=== PATIENT | female | born 1990 | race Two or more races ===

== ENCOUNTER → 2024-06-13 | Outpatient (CLI) | payer BC, SELFPAY ==
[2024-06-13 11:09] LABS: Collection Type, Urine Clean Catch
[2024-06-13 11:34] LABS: Basophils % (Auto) 0 % (0-2.5); Eosinophils # (Auto) 0.1 Thou/mm3 (0.0-0.5); Eosinophils % (Auto) 1 % (0-10); Hematocrit 36.9 % (36.0-46.0); Hemoglobin 12.4 g/dL (12.0-16.0); Immature Granulocytes % (Auto) 0 % (0-0); Immature Granulocytes Auto 0.01 Thou/mm3 (0.00-0.00); Lymphocytes # (Auto) 1.9 Thou/mm3 (1.0-4.8); Lymphocytes % (Auto) 30 % (10-50); Mean Corpuscular HGB Conc 33.6 g/dl (31.0-37.0); Mean Corpuscular Hemoglobin 29.8 pg (25.0-35.0); Mean Corpuscular Volume 89 fL (80-100); Monocytes # (Auto) 0.3 Thou/mm3 (0.0-0.8); Monocytes % (Auto) 5 % (0-12); Neutrophils % (Auto) 63 % (37-80); Nucleated Red Blood Cell % 0 /100 WBC (0); Platelet Count 217 Thou/mm3 (140-440); RDW Standard Deviation 45.5 fL (36.4-46.3); Red Blood Count 4.16 Miln/mm3 (4.00-5.20); White Blood Count 6.4 Thou/mm3 (3.6-11.0)
[2024-06-13 11:44] LABS: Bilirubin,Urine Negative (Negative); Blood,Urine Trace (Negative); Clarity,Urine Clear (Clear/Hazy); Color,Urine Colorless (Lt Yel-Yel); Culture Indicated,Urine Not Indicated; Glucose, Urine Negative (Negative); Ketones,Urine Trace (Negative); Leukocyte Esterase,Urine Negative (Negative); Nitrite,Urine Negative (Negative); Protein,Urine Negative (Neg - Trace); RBC,Urine 1 /hpf (0-3); Specific Gravity,Urine 1.009 (1.001-1.035); Squamous Epithelial Cell,Urine 1 /hpf (0-5); Urobilinogen,Urine Negative mg/dL (0.0-1.0); WBC,Urine 1 /hpf (0-5)
[2024-06-13 11:45] LABS: Glucose Estimated Average 88 mg/dL (80-131); Hemoglobin A1C 4.7 % Hgb (4.8-6.0)
[2024-06-13 11:51] LABS: Vitamin D 25 Hydroxy Total 64.6 ng/mL (7.3-40.2)
[2024-06-13 12:06] LABS: Alanine Aminotransferase 23 U/L (10-49); Albumin, Serum 4.6 gm/dL (3.5-5.0); Albumin/Globulin Ratio 2.1 (1.2-2.2); Alkaline Phosphatase 43 U/L (46-116); Anion Gap 8 (7-16); Aspartate Amino Transferase 17 U/L (0-34); BUN/Creatinine Ratio 27 Ratio (12-20); Bilirubin,Total 0.5 mg/dL (0.3-1.2); Blood Urea Nitrogen 16 mg/dL (9-23); Calcium 9.6 mg/dL (8.3-10.6); Calcium (Corrected) 9.6 mg/dL (8.5-10.1); Carbon Dioxide 27.2 mMol/L (20.0-31.0); Cardiac Risk Estimate 2.6 RATIO (3.7-5.6); Chloride 107 mMol/L (98-107); Cholesterol 175 mg/dL (132-200); Creatinine (Component) 0.6 mg/dL (0.6-1.3); Globulin 2.2 gm/dL (2.3-3.5); Glucose 82 mg/dL (74-106); HDL Cholesterol 67 mg/dL (40-60); LDL Cholesterol,Calculated 95 mg/dL (0-130); Osmolality,Calculated 283 (275-295); Potassium 4.5 mMol/L (3.4-5.1); Sodium 142 mMol/L (136-145); Thyroid Stimulating Hormone 0.47 uIU/mL (0.55-4.78); Total Protein 6.8 gm/dL (5.7-8.2); Triglycerides 67 mg/dL (30-150); eGFR > 60 See Note
== END | disposition home or self-care (01) ==
LOC: COPL 10:16
PROVIDERS: PCP Family Medicine; Referring Provider Family Medicine; Visit Provider Family Medicine
DX: Z00.00 Encounter for general adult medical examination without abnormal findings (principal); E11.9 Type 2 diabetes mellitus without complications; Z13.0 Encounter for screening for diseases of the blood and blood-forming organs and certain disorders involving the immune mechanism; Z13.21 Encounter for screening for nutritional disorder; Z13.220 Encounter for screening for lipoid disorders; Z13.29 Encounter for screening for other suspected endocrine disorder
CPT/HCPCS: 36415; 80053; 80061; 81001; 82306; 83036; 84443; 85025

== ENCOUNTER → 2024-06-23 | Outpatient (CLI) | payer BC, SELFPAY ==
--- NOTE | 2024-06-23 14:52 | XR_ITS ---
Examination: Sinus series 4 views TECHNIQUE: Jr Phillips lateral submentovertex sinus series 4 views Exam date and time: June 23, 2024 1511 hours INDICATIONS: Sinus pressure and pain beginning one week ago FINDINGS: Mild opacity in the frontal ethmoid air cells maxillary antra as well as sphenoid air cells No fluid levels No retention cysts IMPRESSION: Mild chronic pansinusitis
== END | disposition home or self-care (01) ==
LOC: CDIM 14:43
PROVIDERS: PCP Family Medicine; Referring Provider Family Medicine; Visit Provider Family Medicine
DX: J32.4 Chronic pansinusitis (principal)
CPT/HCPCS: 70220

== ENCOUNTER 2025-01-01 14:28 | Emergency (ER) | payer BC, SELFPAY ==
--- NOTE | 2025-01-01 14:32 | EKG_ITS ---
[facility] (Formerly [facility])[3] Test Date: 2025-01-01 Pat Name: BAHMAN MIKE Department: Room: - Gender: Female Nicker: : 1990 Requested By: Beverly Rider Order Number: [id number] Reading MD: Beverly Rider Measurements Intervals [place] Rate: 101 P: 26 IN: 132 QRS: 70 QRSD: 99 T: 37 QT: 321 QTc: 416 Interpretive Statements SINUS TACHYCARDIA ABNORMAL RHYTHM ECG No previous ECG available for comparison /store/S0/[id number].pdf
[2025-01-01 14:36] VITALS: BP 115/68; PULSE 101; RESP 18; TEMP 37.4; O2SAT 100; BMI 31.6
--- NOTE | 2025-01-01 14:39 | XR_ITS ---
Examination: CT brain head without contrast. 2-D sagittal coronal reconstructions Date and time of exam: January 01, 2025, 1551 hours INDICATIONS: Severe headaches today CTDI: vol (mGy): 47.9 DLP: (mGycm): 855 Technique: Multiple CT axial sections of the brain have been obtained, 5 mm slice thickness. Contrast has not been administered. 2-D sagittal, coronal reconstructions have been obtained Low dose protocols were performed. One or more of the following dose reduction techniques were used; automated exposure control, adjustment of the mA and/or KV according to patient size, use of iterative reconstruction technique. Findings: No significant ventricular enlargement. Intra-axial or extra-axial hemorrhage density is not seen. No mass effect or midline shift Basal cisterns are not remarkable. Fourth ventricle is midline. Cranial vault intact. Impression: Negative for acute hemorrhage, mass effect or midline shift
--- NOTE | 2025-01-01 14:40 | XR_ITS ---
CLINICAL INDICATION: Chest Pain TECHNIQUE: XR chest 2V, 01/01/2025 at 2:44 p.m. COMPARISON: None. FINDINGS: The cardiomediastinal silhouette is within normal limits. No airspace opacities suggestive of pneumonia. Punctate dense nodule in the right upper lobe could represent a calcified granuloma. No mass detected. No pleural effusion or pneumothorax. Mild convex right spinal curvature may be positional in etiology or due to scoliosis. Otherwise, no acute osseous abnormalities detected. IMPRESSION: No radiographic evidence for acute cardiopulmonary abnormality. - This report was generated utilizing speech recognition software. -
--- NOTE | 2025-01-01 14:43 | PD.EDRME ---
Rapid Medical Screening Exam [facility] Arrival date/time: 01/01/25 14:28 34-year-old female with a history of type 2 diabetes presents to the emergency room with a chief complaint of a 10 out of 10 headache, shortness of breath, chest pain x 2 days I have greeted and performed a focused initial assessment of this patient. A comprehensive ED assessment and evaluation of the patient, analysis of all test results, and completion of the medical decision making process will be conducted by additional ED providers. Chief Complaint: Chest Pain Time Seen by Provider: 01/01/25 14:31 Vital signs: Vital Signs Temperature 99.4 F 01/01/25 14:36 Pulse Rate 101 H 01/01/25 14:36 Respiratory Rate 18 01/01/25 14:36 Blood Pressure 115/68 01/01/25 14:36 Pulse Oximetry (%) 100 01/01/25 14:36 Oxygen Delivery Method Room Air 01/01/25 14:36 Vital signs reviewed by provider: Yes Exam: Sternal chest pain that radiates to the left arm 10 out of 10 headache to the left side of her head. GCS of 15 alert and oriented x 3 pupils are PERRLA Clinical Impression: Migraine/tension headache/subarachnoid hemorrhage
[2025-01-01] MEDS: ACETAMINOPHEN 500 MG TABLET 1000 MG PO (15:34)
[2025-01-01] MEDS: METOCLOPRAMIDE 5 MG TABLET 10 MG PO (15:35)
[2025-01-01 15:40] LABS: Basophils # (Auto) 0.0 Thou/mm3 (0.0-0.2); Basophils % (Auto) 0 % (0-2.5); Eosinophils # (Auto) 0.0 Thou/mm3 (0.0-0.5); Eosinophils % (Auto) 0 % (0-10); Hematocrit 39.2 % (36.0-46.0); Hemoglobin 13.7 g/dL (12.0-16.0); Immature Granulocytes Auto 0.03 Thou/mm3 (0.00-0.00); Lymphocytes # (Auto) 1.2 Thou/mm3 (1.0-4.8); Lymphocytes % (Auto) 10 % (10-50); Mean Corpuscular HGB Conc 34.9 g/dl (31.0-37.0); Mean Corpuscular Hemoglobin 30.9 pg (25.0-35.0); Mean Corpuscular Volume 88 fL (80-100); Monocytes # (Auto) 0.7 Thou/mm3 (0.0-0.8); Monocytes % (Auto) 6 % (0-12); Neutrophils # (Auto) 10.3 Thou/mm3 (1.8-7.7); Neutrophils % (Auto) 84 % (37-80); Nucleated Red Blood Cell # 0.00 Thou/mm3 (0.00-0.00); Nucleated Red Blood Cell % 0 /100 WBC (0); Platelet Count 198 Thou/mm3 (140-440); RDW Standard Deviation 38.4 fL (36.4-46.3); Red Blood Count 4.44 Miln/mm3 (4.00-5.20); White Blood Count 12.3 Thou/mm3 (3.6-11.0)
[2025-01-01 15:56] LABS: INR 1.0 (0.9-1.3); Partial Thromboplastin Time 25.8 Seconds (22.0-36.0); Prothrombin Time 10.2 Seconds (9.0-12.2)
[2025-01-01 15:59] LABS: Alanine Aminotransferase 17 U/L (10-49); Albumin, Serum 4.7 gm/dL (3.5-5.0); Albumin/Globulin Ratio 2.0 (1.2-2.2); Alkaline Phosphatase 62 U/L (46-116); Anion Gap 9 (7-16); Aspartate Amino Transferase 15 U/L (0-34); BUN/Creatinine Ratio 15 Ratio (12-20); Bilirubin,Total 0.5 mg/dL (0.3-1.2); Blood Urea Nitrogen 9 mg/dL (9-23); Calcium 9.7 mg/dL (8.3-10.6); Calcium (Corrected) 9.7 mg/dL (8.5-10.1); Carbon Dioxide 28.2 mMol/L (20.0-31.0); Chloride 103 mMol/L (98-107); Creatinine (Component) 0.6 mg/dL (0.6-1.3); Estimated Creatinine Clearance 118.2 mL/min (>60); Globulin 2.3 gm/dL (2.3-3.5); Glucose 105 mg/dL (74-106); Magnesium 1.7 mg/dL (1.6-2.6); Osmolality,Calculated 278 (275-295); Potassium 4.2 mMol/L (3.4-5.1); Sodium 140 mMol/L (136-145); Total Protein 7.0 gm/dL (5.7-8.2); Troponin I < 0.002 ng/mL (0.0-0.045); eGFR > 60 See Note
[2025-01-01 16:08] LABS: B-Type Natriuretic Peptide 32 pg/mL (0-100)
--- NOTE | 2025-01-01 16:59 | EDNOTE_ITS ---
<Statement entered by Beverly Watkins MD - 01/03/25 16:17> As co-signing physician, I was present and available for consult prn. I concur with the plan and care as documented by the midlevel provider. ED General RME/HPI General Chief complaint: Chest Pain Stated complaint: CHEST/BACK PAIN, SOB Time Seen by Provider: 01/01/25 14:31 Arrival date/time: 01/01/25 14:28 CC: Headache, mid back pain shortness of breath due to back pain HPI onset this morning. The patient did no heavy lifting fall blunt trauma yesterday but states she may have slept wrong on it this morning. The patient takes sumatriptan for migraines which did not relieve the pain. Patient denies light sensitivity noise sensitivity nausea or vomiting. No other complaints last menstrual cycle was the end of last month the patient has an implant against . Patient denies fever cough shortness of breath difficulty breathing. RME / HPI RME / HPI narrative: 01/01/25 14:28 34-year-old female with a history of type 2 diabetes presents to the emergency room with a chief complaint of a 10 out of 10 headache, shortness of breath, chest pain x 2 days I have greeted and performed a focused initial assessment of this patient. A com prehensive ED assessment and evaluation of the patient, analysis of all test results, and completion of the medical decision making process will be conducted by additional ED providers. Exam: Sternal chest pain that radiates to the left arm 10 out of 10 headache to the left side of her head. GCS of 15 alert and oriented x 3 pupils are PERRLA Impression: Migraine/tension headache/subarachnoid hemorrhage Related Data Home Medications ?Medication ?Instructions ?Recorded ?Confirmed Vit #76/Iron,Carb/FA (Pnv 1 ea PO 1XD #0 tabs 08/31/16 10/30/21 29-1 Tablet) insulin aspart U-100 100 unit/mL 5 unit subcut 3XD 03/2210/30/21 (3 mL) subcutaneous pen (Novolog FlexPen U-100 Insulin aspart) insulin degludec 100 unit/mL (3 46 unit subcut 1XD 03/2210/30/21 mL) subcutaneous pen (Tresiba FlexTouch U-100 insulin) Previous Rx's ?Medication ?Instructions ?Recorded meloxicam 7.5 mg tablet 7.5 mg PO QDAY #10 tabs 05/23 Allergies Allergy/AdvReac Type Severity Reaction Status Date / Time sulfamethoxazole Allergy Severe WEAKNESS Verified 01/01/25 14:31 trimethoprim Allergy Severe WEAKNESS Verified 01/01/25 14:31 Review of Systems Review of Systems Narrative Review of Systems: GEN: No fever, no chills, no weight loss EYES: No discharge, no visual changes, no pain HEENT: No ear pain, no congestion, no sore throat PULM: No shortness of breath, no cough, no congestion CV: No chest pain, no dyspnea on exertion, no palpitations GI: No nausea, no vomiting, no diarrhea, no pain, no constipation : No frequency, no urgency, no dysuria MUSC/SKEL: No joint pain, + back pain SKIN: No rash PSYCH: No hallucinations, no depression HEME/LYMPH: No easy bleeding or bruising tendencies NEURO: No weakness, + headache Past Medical History Past Medical History CARDIAC: Negative Congestive Heart Failure RESPIRATORY: Negative Chronic Obstructive Pulmonary Disease (COPD) GENITOURINARY: Negative Renal Disease ENDOCRINE: Positive Diabetes Mellitus Type 2; Negative Diabetes Mellitus Type 1 Social History SMOKING STATUS: Never smoker ED Exam Narrative Physical exam: [General: Obese not in any acute distress Head normocephalic HEENT: Within acceptable limits Neck is supple nontender Chest equal chest rise nontender to palpation Respiratory: Clear to auscultation no wheezes crackles or rubs CV: Rate rhythm is regular no murmurs rubs or clicks Abdomen is distended secondary to body habitus soft nontender no masses positive bowel sounds all 4 quadrants Back: No CVA tenderness no spinous process tenderness from cervical spine thoracic and lumbar spine there is no pain reproduction with palpation in the mid thoracic region bilaterally. Skin: Intact no petechiae rash induration ulceration or crepitus Extremities: Moving all extremity against resistance cap refill less than 2 seconds neurosensory intact Neuro: Awake alert oriented x3 Glascow coma 15 no focal deficits] Course Course Course Narrative: Upon reassessment at 1700, the patient has complete relief of the headache with a migraine cocktail. Occasional be discharged home to follow-up with primary care doctor. Quality Measures none Orders Category Date Time Status EKG (ED ONLY) *Do not use* NOW Care 01/01/25 14:[address] head/brain wo con Stat Exams 01/01/25 14:39 Completed EKG (ED Only) Stat Exams 01/01/25 14:32 Draft XR chest 2V Stat Exams 01/01/25 14:40 Completed B-Type Natriuretic Peptide Stat Lab 01/01/25 15:25 Completed CBC Stat Lab 01/01/25 15:25 Completed Comprehensive Metabolic Panel Stat Lab 01/01/25 15:25 Completed Magnesium Stat Lab 01/01/25 15:25 Completed Partial Thromboplastin Time Stat Lab 01/01/25 15:25 Completed Prothrombin Time with INR Stat Lab 01/01/25 15:25 Completed Troponin I Stat Lab 01/01/25 15:25 Completed Acetaminophen Tab [Tylenol ES Tab] Med 01/01/25 14:39 Discontinued 1,000 mg PO X1 ONE DiphenhydrAMINE [Benadryl] Med 01/01/25 14:39 Discontinued 25 mg PO X1 ONE Metoclopramide [Reglan] Med 01/01/25 14:39 Discontinued 10 mg PO X1 ONE Vital Signs Vital signs: Vital Signs Temperature 99.4 F 01/01/25 14:36 Pulse Rate 101 H 01/01/25 14:36 Respiratory Rate 18 01/01/25 14:36 Blood Pressure 115/68 01/01/25 14:36 Pulse Oximetry (%) 100 01/01/25 14:36 Oxygen Delivery Method Room Air 01/01/25 14:36 Discharge Plan Plan Patient Disposition: HOME (Self Care) Patient condition on transfer: Stable Prescriptions/Referrals Prescriptions/Med Rec: New meloxicam 7.5 mg tablet 7.5 mg PO QDAY Qty: 10 0RF No Action Vit #76/Iron,Carb/FA (Pnv 29-1 Tablet) 1 EACH tablet 1 ea PO 1XD Qty: 0 insulin aspart U-100 [Novolog FlexPen U-100 Insulin] 100 unit/mL (3 mL) Insulin Pen 5 unit SUBCUT 3XD Rx Instructions: before meals Tresiba FlexTouch U-100 100 unit/mL (3 mL) Insulin Pen 46 unit SUBCUT 1XD Referrals: Abdi (PCP)Maikol MD [Primary Care Provider, Family Practice] - In 1 week Problem List Clinical Impression: Mid back pain, Headache Patient/Caregiver Discharge Instructions Other Activity Instructions:: Take the medications as needed follow-up with your primary care doctor there is worsening of symptoms return the emergency room immediately for further evaluation. Education Materials: Self-Care for Headaches, Self-Care for Low Back Pain Print Language: Czech Stand Alone Forms: Jennifer Award Info., Patient Portal Info Letter, Work/School Release FELIX/HARISH Supervising Physician NARENDRA Supervising Physician: Daniel BIANCHI Clinical Information Provided by: patient Medical Records reviewed [facility] Meds/Rx considered, not ordered None Labs/Rad/Tests considered, not ordered None Chronic Illness/Social Conditions Explain: Diabetes Labs Labs: interpreted by ok Lab(s) Interpretation(s): CBC shows a mild leukocytosis of 12.3 no anemia or thrombocytopenia Coags within acceptable limits CMP shows no significant electrolyte imbalances renal impairment transaminitis or T. bili elevation Troponin is negative BNP is negative Imaging Imaging interpretation: interpreted by ok Imaging Interpretation(s): Chest x-ray is negative for any acute finding Head CT is unremarkable. Medication Administration(s) Medication Administration History Discontinued Medications Acetaminophen (Acetaminophen 500 Mg Tablet) 1,000 mg PO X1 ONE Stop: 01/01/25 14:40 Last Admin: 01/01/25 15:34 Dose: 1,000 mg Documented By: EMETERIO Diphenhydramine HCl (Diphenhydramine 25 Mg Capsule) 25 mg PO X1 ONE Stop: 01/01/25 14:40 Last Admin: 01/01/25 15:35 Dose: 25 mg Documented By: EMETERIO Metoclopramide HCl (Metoclopramide 5 Mg Tablet) 10 mg PO X1 ONE Stop: 01/01/25 14:40 Last Admin: 01/01/25 15:35 Dose: 10 mg Documented By: EMETERIO Diagnosis Differential Diagnosis ED Complaint MDM: Complex migraine tension headache anxiety
== END 2025-01-01 17:31 | disposition home or self-care (01) ==
PROVIDERS: Nurse Practitioner Family; Emergency Provider Emergency Medicine; PCP Family Medicine
DX: R51.9 Headache, unspecified (principal); M54.6 Pain in thoracic spine; R07.9 Chest pain, unspecified; R00.0 Tachycardia, unspecified
CPT/HCPCS: 36415; 70450; 71046; 80053; 83735; 83880; 84484; 85025; 85610; 85730; 93005; 99283; A9270